=== PATIENT | male | born 1960 | race Caucasian/White ===

== ENCOUNTER 2017-02-17 14:09 | Emergency (ER) | payer OTHER ==
[~2017-02-17] VITALS: Ht 162.6 cm; Wt 112.3 kg
[~2017-02-17 14:09] MED LIST: BUTISOL SODIUM30 MG PO; Coumadin,Jantoven PO; Dyazide, Maxzide 37. PO; FLEXERIL10 MG PO; FLOVENT 11120 INHALA IH; FLOVENT DISKUS1 DIS2 IH; Flonase BOTH NARES; LANSOPRAZOLE30 MG PO; LORTAB 5-500 T1 EACH PO; Lopressor PO; MAXALT10 MG PO; METOPROLOL TART50 MG PO; NAPROSYN500 MG PO; PERCOCET 5/31 TABLET PO; PREVACID15 MG PO; SINGULAIR10 MG PO; Singulair PO; TRIAMTERENE-HC1 EAC1 PO; ULTRAM50 MG PO; Vicodin,Norco 5/325 PO; WARFARIN SODIUM5 MG PO; Xarelto PO; ZOFRAN4 MG PO
[2017-02-17 15:01] LABS: HEMATOCRIT 46.6 % (38.0-50.0); MCH 33.2 PG (29.0-34.0); MCHC 36.1 G/DL (30.0-36.0); MCV 92.1 FL (86-99); MEAN PLAT.VOLUME 9.9 uM^3 (9.0-12.4); PLATELET COUNT 220 K/uL (156-360); RBC DIS.WIDTH-CV 11.7 % (11.8-14.6); RBC DIS.WIDTH-SD 39.2 % (39-53); RED BLOOD COUNT 5.06 M/uL (4.00-5.50); WHITE BLOOD COUNT 8.9 K/uL (4.1-10.2)
[2017-02-17 15:12] LABS: INTER. NORMALIZED RATIO 1.3
[2017-02-17 15:14] LABS: PTT 34.5 SEC (25-37)
[2017-02-17 15:18] LABS: CHLORIDE 106 mEq/L (99-109); POTASSIUM 3.4 mEq/L (3.7-5.4); SODIUM 138 mEq/L (136-147)
[2017-02-17 15:20] LABS: GLUCOSE 88 mg/dL (70-99)
[2017-02-17 15:21] LABS: ANION GAP 7 MEQ/L (2-14)
[2017-02-17 15:24] LABS: GFR ESTIMATE (CALCULATED) > 59 mL/min/ (58.99-99999); TROP-I INTERPRETATION NEGATIVE; TROPONIN-I < 0.01 ng/mL (0.0-0.30)
[2017-02-17 15:25] LABS: UREA NITROGEN (BUN) 15 mg/dL (9-23)
[2017-02-17 15:55] LABS: ADD MIUA? YES; BILIRUBIN NEGATIVE; BLOOD SMALL; COLOR STRAW ((YELLOW)); GLUCOSE (STRIP) NEGATIVE; KETONES NEGATIVE; LEUKOCYTES NEGATIVE; NITRITE NEGATIVE; PROTEIN (STRIP) NEGATIVE; UROBILINOGEN 0.2 MG/DL (0.2-1.0)
[2017-02-17 15:57] LABS: BACTERIA NONE SEEN /HPF; EPITHELIAL CELLS RARE /HPF; MUCUS NONE SEEN /LPF; RED BLOOD CELLS 0-5 /HPF (0-5); UCUL ADDED? NO; WHITE BLOOD CELLS 0-5 /HPF (0-5)
[2017-02-17 17:30] VITALS: BP 133/86
[2017-02-17] MEDS ORDERED: PROVENTIL HFA6.7 GM IH (17:45)
== END 2017-02-17 18:07 | disposition home or self-care (01) ==
LOC: EME 14:09
PROVIDERS: Emergency Medicine
DX: J06.9 Acute upper respiratory infection, unspecified (principal); R07.81 Pleurodynia; I10 Essential (primary) hypertension; Z86.711 Personal history of pulmonary embolism; Z86.718 Personal history of other venous thrombosis and embolism; Z79.01 Long term (current) use of anticoagulants; F17.200 Nicotine dependence, unspecified, uncomplicated
CPT/HCPCS: 71020; 71275; 80048; 81003; 83880; 84484; 85027; 85610; 85730; 93005; 99281; 99284; J1100